=== PATIENT | female | born 1990 | race Two or more races ===

== ENCOUNTER 2023-12-28 10:06 | Emergency (ER) | payer OTHER, BC ==
[2023-12-28 10:15] VITALS: BP 115/75; PULSE 105; RESP 16; TEMP 98.2; BMI 23.8
[2023-12-28 10:52] LABS: BASO % 0.5 % (0-2.0); EOS % 0.5 % (0-4.5); HEMATOCRIT 34.2 % (32.4-45.2); HEMOGLOBIN 11.7 GM/dL (10.7-15.3); LYMPH % 24.9 % (8-40); MCHC 34.1 g/dl (32.0-36.0); MEAN CELL VOLUME 82.2 fl (80-96); MEAN PLT VOLUME 7.8 fl (7.5-11.1); MONO % 5.4 % (3.8-10.2); NEUT % 68.7 % (42.8-82.8); PLATELET COUNT 284 10^3/uL (134-434); RBC 4.16 M/mm3 (3.60-5.2); RDW 13.7 % (11.6-15.6); WHITE BLOOD COUNT 10.7 K/mm3 (4.0-10.0)
[2023-12-28 11:17] LABS: POTASSIUM 3.8 mmol/L (3.5-5.1)
[2023-12-28 11:19] LABS: ALBUMIN 3.1 g/dl (3.4-5.0); CALCIUM 9.2 mg/dL (8.5-10.1)
[2023-12-28 11:28] LABS: BILIRUBIN,TOTAL 0.2 mg/dL (0.2-1); CREATININE 0.5 mg/dL (0.55-1.3); PHOSPHOROUS 4.2 mg/dL (2.5-4.9); TOT PROT 7.6 g/dl (6.4-8.2)
[2023-12-28 13:00] LABS: HIV INTERPRETATION NEGATIVE (NEGATIVE)
== END 2023-12-28 10:56 | disposition home or self-care (01) ==
LOC: JERFT 10:06
DX: S61.241A Puncture wound with foreign body of left index finger without damage to nail, initial encounter (principal); W46.0XXA Contact with hypodermic needle, initial encounter
CPT/HCPCS: 36415; 80053; 82465; 82977; 84100; 85025; 86704; 86803; 87340; 87389; 87517; 99283-25